=== PATIENT | male | born 1975 | race Caucasian/White ===

== ENCOUNTER 2022-05-14 21:11 | Outpatient (REF) | payer OTHER, SELFPAY ==
[2022-05-16 12:14] LABS: COVID-19 RT-PCR UVMMC Result Negative (Negative)
== END 2022-05-14 21:12 | disposition home or self-care (01) ==
LOC: LBN 21:11
PROVIDERS: Visit Provider Physician Assistant Medical
DX: J02.9 Acute pharyngitis, unspecified (principal); Z20.822 Contact with and (suspected) exposure to COVID-19
CPT/HCPCS: U0003; 87070

== ENCOUNTER 2022-06-25 21:38 | Emergency (ER) | payer OTHER, SELFPAY ==
[2022-06-25] VITALS (18 sets, daily range): BP systolic 113–137; BP diastolic 54–106; PULSE 73–94; RESP 12–22; TEMP 36.2; O2SAT 93–98
--- NOTE | 2022-06-25 21:45 | RT.EKG_ITS ---
APPROVED REPORT Exam: Resting ECG Reason for Exam: blacked out Patient Location: E HR:77 bpm ECG Measurements Heart Rate 77 AXIS VA 170 P 1 QRSd 91 QRS 68 QT 345 T 39 QTc 392 Conclusion Sinus rhythm...normal P axis, V-rate 60- 99 Consider anteroseptal infarct...Q >30mS, dimin R, V1-V2 Physician: no stemi
--- NOTE | 2022-06-25 22:06 | ED.GENADUL_ITS ---
Discharge Plan Disposition Patient Disposition: Home Discharge Details Clinical Impression: Reactive airway disease Primary Care Provider: None,None ED Provider: Alex Cartwright Home Meds and New Rx's Prescriptions: New benzonatate 100 mg capsule 100 mg PO TID Qty: 30 0RF prednisone 50 mg tablet 50 mg PO DAILY Qty: 5 0RF famotidine 40 mg tablet 40 mg PO DAILY Qty: 30 0RF Discharge Instructions Instructions: Reactive Airways Disease (ED) Additional Instructions: At this time your work-up thankfully shows no evidence of tumor, mass, pneumonia, or other infection. There is evidence of reactive airway disease/asthma which is likely secondary to your chronic tobacco use. Please do your best to cut down on smoking. Please take the Symbicort inhaler that we have given you. Take 2 puffs every 12 hours for the next 2 weeks. Additionally we have prescribed a steroid, as well as an anticough pill, these have been sent to your pharmacy on file. Please take these as directed. Additionally sometimes reflux/acid reflux can cause symptoms like this. We have sent a prescription for an antiacid famotidine. Please take this as directed. If you notice any worsening of your symptoms, or any new symptoms such as vomiting, diarrhea, fever, chills, shortness of breath, chest pain, numbness, weakness, or fainting , please return immediately to the emergency department for reevaluation. Please follow up with your primary care provider as soon as possible for reassessment and reevaluation. As always, it was a pleasure participating in your medical care today. Medical Decision Making 46-year-old male with past medical history of regular tobacco abuse, no other significant past medical history presents today for evaluation of cough. Patient states that about 3 months ago he developed a cough which lasted for about a month, he went to the urgent care and was started on amoxicillin, and an inhaler. This improved his symptoms. He then went for a trip to [place], felt great down there, and then about 3 days after he returned on their drive back he noticed a return again of his cough and mild shortness of breath. He denies any chest pain. He has now been coughing again for the last month, and it is unremitting. He is not on any antibiotics. This evening he did have a coughing fit that was so hard that he syncopized which is the first time that has happened. No personal or family history of sudden otherwise. No personal history of cardiac disease or blood clots. Patient denies any chest pain currently. He did fall and landed on his face when he syncopized, and did get a bruise lip from his tooth, but no lacerations. He denies any headache or significant facial pain or tenderness otherwise. He states he otherwise feels fine right now aside for his prolonged cough. No other complaints at this time. No other modifying factors. Physical exam demonstrates well-appearing male, EKG benign. No signs of significant facial trauma. No neurologic deficits. No hemotympanums. No head pain or headache. Symptoms appear inconsistent with an acute intercranial pathology. Lungs are clear aside from mild wheeze. I am a bit concerned with the longevity of his symptoms. Differential includes bronchitis, tumor or mass, or potential PE. Less likely cardiac etiology. We will evaluate for these, monitor closely and reassess. 1:33 AM Laboratory work-up was unremarkable. No significant white count bandemia or left shift. D-dimer was negative, electrolytes normal, troponin and EKG were stable. No concerning cause of his syncope at this time aside for his cough. Chest x-ray showed evidence of possible pulmonary nodules but no evidence of consolidation. CT scan was recommended by radiology for further assessment. CT scan Noncon per recommendations was ordered and shows some mild adenopathy, however no evidence of mass, consolidation, inflammatory changes or other abnormality. There is some heterogenous attenuation of the pulmonary parenchyma, which is consistent with mild air trapping but no other significant abnormalities. Patient otherwise remained stable. I do not feel that antibiotics would be appropriate at this time with no evidence of infection. I suspect this is more of a reactive component. We will start the patient on Symbicort and a round of steroids as well. We will give Tessalon Perles for home use. Recommend close follow-up with PCP for reassessment. If the patient has no significant improvement over the next 1 to 2 weeks of treatment that he may require pulmonology follow-up. Otherwise patient appears notably stable for discharge. Discussed red flags for which to return. I have extensively reviewed the treatment plan and discharge instructions with the patient and their family. I have addressed all patient concerns at this time. The patient and family was made aware of what symptoms to monitor for that would warrant a return to the emergency department. Discussed the plan with the patient and family, they demonstrate verbal understanding and agreement with our assessment and plan at this time. The documentation in this chart was dictated using [employer] dictation software. Please excuse any dictation errors. We will also add an antacid medication in case there is a potential component of reflux that is causing his symptoms. FINDINGS: Lungs: Focal nodularity in bilateral lower lungs on the frontal image, not clearly seen on the lateral image. Pleural spaces: Unremarkable. No pleural effusion. No pneumothorax. Heart/Mediastinum: Unremarkable. No cardiomegaly. Bones/joints: Unremarkable. IMPRESSION: Possible pulmonary nodules. Recommend noncontrast CT of the chest for further evaluation. Thank you for allowing us to participate in the care of your patient. Dictated and Authenticated by: Saqib Nixon MD 06/26/2022 12:41 AM Eastern Time ([place] & [place]) FINDINGS: Lungs: There is mild heterogeneous attenuation of the pulmonary parenchyma, consistent with mild air trapping from underlying small airways disease. Mild centrilobular emphysematous changes are present. No evidence of pulmonary nodules. There is no evidence of focal pulmonary consolidation. No evidence of pulmonary parenchymal inflammatory changes. There is no evidence of pulmonary masses. Pleural spaces: There is no evidence of pneumothorax. There are no pleural effusions present. Heart: The cardiac structures are normal. Lymph nodes: Mild adenopathy present at the level of the aortopulmonary window, peribronchial regions, subcarinal region and pretracheal region. Vasculature: The pulmonary arteries are normal in caliber. The aorta and great vessels appear normal. Bones/joints: The spine, sternum, ribs, and pectoral girdles show no evidence of acute abnormality Soft tissues: There are no soft tissue masses or fluid collections. The upper abdominal viscera are unremarkable. Other findings: The mediastinal structures are normal. IMPRESSION: 1. No evidence of pulmonary nodules. 2. There is no evidence of focal pulmonary consolidation. No evidence of pulmonary parenchymal inflammatory changes. There is no evidence of pulmonary masses. 3. Mild adenopathy present at the level of the aortopulmonary window, peribronchial regions, subcarinal region and pretracheal region. 4. There is mild heterogeneous attenuation of the pulmonary parenchyma, consistent with mild air trapping from underlying small airways disease. Mild centrilobular emphysematous changes are present. Thank you for allowing us to participate in the care of your patient. Dictated and Authenticated by: Pramod Curiel MD 06/26/2022 1:24 AM Eastern Time ([place] & [place]) HPI General Date/Time Provider Initiated Documentation: 06/25/22 21:47 . HPI Narrative: 46-year-old male with past medical history of regular tobacco abuse, no other significant past medical history presents today for evaluation of cough. Patient states that about 3 months ago he developed a cough which lasted for about a month, he went to the urgent care and was started on amoxicillin, and an inhaler. This improved his symptoms. He then went for a trip to [place] , felt great down there, and then about 3 days after he returned on their drive back he noticed a return again of his cough and mild shortness of breath. He denies any chest pain. He has now been coughing again for the last month, and it is unremitting. He is not on any antibiotics. This evening he did have a coughing fit that was so hard that he syncopized which is the first time that has happened. No personal or family history of sudden otherwise. No personal history of cardiac disease or blood clots. Patient denies any chest pain currently. He did fall and landed on his face when he syncopized, and did get a bruise lip from his tooth, but no lacerations. He denies any headache or significant facial pain or tenderness otherwise. He states he otherwise feels fine right now aside for his prolonged cough. No other complaints at this time. No other modifying factors. Related Data Home Medications Medication Instructions Recorded Confirmed benzonatate 100 mg capsule 100 mg PO TID #30 caps 06/26/22 famotidine 40 mg tablet 40 mg PO DAILY #30 tabs 06/26/22 prednisone 50 mg tablet 50 mg PO DAILY #5 tabs 06/26/22 Previous Rx's Medication Instructions Recorded benzonatate 100 mg capsule 100 mg PO TID #30 caps 06/26/22 famotidine 40 mg tablet 40 mg PO DAILY #30 tabs 06/26/22 prednisone 50 mg tablet 50 mg PO DAILY #5 tabs 06/26/22 Allergies Allergy/AdvReac Type Severity Reaction Status Date / Time No Known Allergies Allergy Unverified 06/25/22 21:49 General Stated Complaint: RespSymp SUHAIL: 3 Review of Systems All systems reviewed & are unremarkable except as noted in HPI and below PFSH All Active Problems (Updated 06/26/22 @ 01:36 by Alex Cartwright DO) Reactive airway disease (Acute) Social History Smoking/Tobacco Use Status: Current every day Tobacco Type: cigarettes Smoking risk assessment performed?: Yes Drug use: Never Substance use type: does not use Do you feel safe in your relationship?: Yes Exam Narrative Exam Narrative: 1.Const: Well-nourished, Well-developed, appearing stated age 2.Eyes: PERRL, no conjunctival injection, and symmetrical lids. 3.ENT: Atraumatic external nose and ears. Moist MM. Neck: Symmetric, trachea midline, No thyromegaly. There is no evidence of raccoon eyes, alvarez sign, CSF rhinorrhea, mastoid tenderness, cranial crepitus, hemotympanum, exophthalmos, or hyphema. Patient demonstrates intact dentition with no signs of tooth avulsion or fracture, no signs of jaw deformity, no evidence of a LeFort's fracture, with an intact palate, nose and orbital region. There is no evidence of a nasal septal hematoma. No proptosis. Jaw closes symmetrically. Airway is clear. 4.CVS: +S1/S2, No murmurs or gallops. Peripheral pulses 2+ and equal in all extremities. Brisk capillary refill in all extremities. 5.RESP: Unlabored respiratory effort. Clear to auscultation bilaterally. Except there is a very minimal wheeze noted in the right lower lung field. 6.GI: Soft, Nontender/Nondistended, No hepatosplenomegaly. No guarding or rebound. 7.MSK: Normocephalic/Atraumatic, Extremities w/o deformity or ttp No cyanosis or clubbing, Normal movement of all extremities 8.Skin: Warm, Dry. No rashes or lesions. 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 Sensation grossly intact, no focal neurologic deficits. All 6 cardinal planes of vision are fully intact. No evidence of rotatory or vertical nystagmus. The patient demonstrated a normal [id number]-[id number], good dexterity. There was no evidence of dysdiadochokinesia. Patient was able to ambulate without difficulty. There was no wide-based gait. Romberg testing was normal. Yypm-ru-[id number] testing was normal. Sensation was intact bilaterally as well as muscle strength bilaterally for all extremities. Patient was able to verbalize butter cup with no slurring, or miss pronunciation. 10.Psych: (AAO) x3. Appropriate mood and affect Course Vital Signs Vital signs: Vital Signs Temperature 36.2 C L 06/25/22 21:43 Pulse 94 H 06/25/22 21:43 Respiratory Rate 16 06/25/22 21:43 Blood Pressure 137/106 H 06/25/22 21:43 Pulse Oximetry 98 06/25/22 21:43 Temperature 36.2 C L 06/25/22 21:43 Temperature Source Tympanic 06/25/22 21:43 Pulse 94 H 06/25/22 21:43 Respiratory Rate 16 06/25/22 21:43 Respiratory Effort Normal 06/25/22 21:43 Blood Pressure 137/106 H 06/25/22 21:43 Blood Pressure Position Sitting 06/25/22 21:43 Pulse Oximetry 98 06/25/22 21:43 Oxygen Delivery Method Room Air 06/25/22 21:43 Oxygen Flow Rate 0 06/25/22 21:43 Pain Level 3 06/25/22 21:43
[2022-06-25 22:16] LABS: Abs Immature Grans 0.06 10^3/uL (0.0-0.06); Absolute Eosinophil Count 0.32 10^3/uL (0.0-0.7); Absolute Lymphocyte Count 2.79 10^3/uL (1.2-3.4); Absolute Monocyte Count 1.16 10^3/uL (0.1-0.8); Basophils % 0.5; Eosinophils % 2.9; HCT 46.1 % (40.0-50.0); HGB 15.8 g/dL (13.5-17.5); Immature Grans % 0.5; Lymphocytes % 25.5; MCH 28.7 pg (27.0-33.0); MCHC 34.3 % (32.0-36.0); MCV 84 fL (80-95); MPV 9.8 fL (8.0-11.0); Monocytes % 10.6; Platelet Count 272 10^3/uL (130-400); RDW 13.7 % (11.8-14.1); RDW-SD 42.2 fL; WBC 10.94 10^3/uL (4.4-10.8)
[2022-06-25] MEDS: Benzonatate 100 MG CAP PO (22:16)
[2022-06-25 22:21] LABS: Absolute Basophil Count 0.05 10^3/uL (0.0-0.2); Absolute Neutrophil Count 6.56 10^3/uL (1.2-6.7)
[2022-06-25 22:32] LABS: ALT 35 U/L (16-63); AST 17 U/L (15-37); Albumin 3.8 g/dL (3.4-5.0); Alkaline Phosphatase 57 U/L (46-116); Anion Gap 9.5 mmol/L (3-11); BUN 16 mg/dL (7-18); Bilirubin, Total 0.6 mg/dL (0.2-1.0); CO2 26.5 mmol/L (21.0-32.0); CREATININE 1.1 mg/dL (0.70-1.30); Chloride 106 mmol/L (98-107); Estimated GFR 84.89 (mL/min/1.73m2); Glucose 93 mg/dL (74-106); Potassium 3.8 mmol/L (3.5-5.1); Sodium 142 mmol/L (136-145); Total Protein 7.8 g/dL (6.4-8.2); Troponin I < 50 ng/L (<or=60)
--- NOTE | 2022-06-25 23:30 | DI.RAD_ITS ---
Exam(s) XR CHEST 2V PA LATERAL EXAM: XR CHEST 2V PA LATERAL CLINICAL HISTORY: cough, r/o pneumonia TECHNIQUE: 2D digital imaging was performed of the chest. Two images were obtained. PA and lateral views were obtained. COMPARISON: CT CT CHEST WO from 06/26/2022 FINDINGS: MEDIASTINUM: Normal. HEART: Normal. PULMONARY VASCULATURE: Normal. LUNGS: No focal consolidating infiltrate is seen. PLEURAL SPACE: No pleural effusion or pneumothorax. BONE:Within normal limits for the patient's age. OTHER FINDINGS:Nipple shadows are seen bilaterally. IMPRESSION: No acute pulmonary findings. DATA REPOSITORY: RADIATION DOSE DELIVERED:
[2022-06-25 23:32] LABS: D-Dimer 326 ng/mlFEU (<500)
[2022-06-26] VITALS (13 sets, daily range): BP systolic 124; BP diastolic 69; PULSE 65–89; RESP 13–24; TEMP 36.2; O2SAT 93–99
--- NOTE | 2022-06-26 00:42 | DI.VRAD_ITS ---
PROCEDURE INFORMATION: Exam: XR Chest Exam date and time: 06/25/2022 11:50 PM Age: 46 years old Clinical indication: Cough; Additional info: Cough, R/O pneumonia TECHNIQUE: Imaging protocol: Radiologic exam of the chest. Views: 2 views. COMPARISON: No relevant prior studies available. FINDINGS: Lungs: Focal nodularity in bilateral lower lungs on the frontal image, not clearly seen on the lateral image. Pleural spaces: Unremarkable. No pleural effusion. No pneumothorax. Heart/Mediastinum: Unremarkable. No cardiomegaly. Bones/joints: Unremarkable. IMPRESSION: Possible pulmonary nodules. Recommend noncontrast CT of the chest for further evaluation. Dictated and Authenticated by: Saqib Nixon MD. Ordering:LIGIA Johnson MD
--- NOTE | 2022-06-26 00:45 | DI.CT_ITS ---
Exam(s) CT CHEST WO EXAM: CT CHEST WO CLINICAL HISTORY: pulmonary nodules, rad requested further eval. TECHNIQUE: Imaging protocol: Axial computed tomography images were obtained and coronal and sagittal reformatted images were created and reviewed. COMPARISON: CR,XR XR CHEST 2V PA LATERAL from 06/25/2022 FINDINGS: Tracheobronchial tree: Patent where visualized. Pulmonary parenchyma: No consolidation or dominant measurable mass. No architectural distortion. Ther e is a calcified granuloma in the right middle lobe. No noncalcified pulmonary nodules. Mild emphys ematous changes are present. Mediastinum and Bridgette: There are few mildly enlarged lymph nodes in the mediastinum. The largest is i n the right paratracheal region and measures 1.7 x 1.2 cm. The esophagus is unremarkable. Thyroid gland: Unremarkable. Pleura: No effusion or pneumothorax. Heart: The heart is not dilated. No coronary artery calcifications are seen. No pericardial effusion. Aorta: Thoracic aorta non-dilated. Upper abdomen: There is decreased attenuation of the liver consistent with fatty infiltration. Lymph nodes: Within normal limits. Soft tissues: Mild gynecomastia. Bones:Within normal limits for the patient's age. IMPRESSION: 1. No noncalcified pulmonary nodules. 2. Calcified granuloma in the right middle lobe. 3. Nonspecific mildly enlarged lymph nodes in the mediastinum. 4. Mild emphysematous changes are present. 5. No focal consolidation. RADIATION DOSE DELIVERED: 768.48mGy.cm Total DLP 768.48mGy.cm Total DLP DATA REPOSITORY: All CT scans at this facility are submitted to the National Radiology Data Registry (NRDR) Dose Index Registry (DIR) with the [employer] ([employer]). RADIATION OPTIMIZATION: All CT scans at this facility use at least one of these dose optimization te chniques: automated exposure control; mA and/or kV adjustment per patient size (includes targeted exa ms where dose is matched to clinical indication); or iterative reconstruction.
--- NOTE | 2022-06-26 01:24 | DI.VRAD_ITS ---
PROCEDURE INFORMATION: Exam: CT Chest Without Contrast; Diagnostic Exam date and time: 06/26/2022 1:01 AM Age: 46 years old Clinical indication: Abnormal findings; Other: Pulmonary nodules, rad requested further eval TECHNIQUE: Imaging protocol: Diagnostic computed tomography of the chest without contrast. 3D rendering (Not supervised by radiologist): MIP and/or 3D reconstructed images were created by the technologist. Radiation optimization: All CT scans at this facility use at least one of these dose optimization techniques: automated exposure control; mA and/or kV adjustment per patient size (includes targeted exams where dose is matched to clinical indication); or iterative reconstruction. COMPARISON: CR XR CHEST 2V PA LATERAL 06/25/2022 11:50 PM FINDINGS: Lungs: There is mild heterogeneous attenuation of the pulmonary parenchyma, consistent with mild air trapping from underlying small airways disease. Mild centrilobular emphysematous changes are present. No evidence of pulmonary nodules. There is no evidence of focal pulmonary consolidation. No evidence of pulmonary parenchymal inflammatory changes. There is no evidence of pulmonary masses. Pleural spaces: There is no evidence of pneumothorax. There are no pleural effusions present. Heart: The cardiac structures are normal. Lymph nodes: Mild adenopathy present at the level of the aortopulmonary window, peribronchial regions, subcarinal region and pretracheal region. Vasculature: The pulmonary arteries are normal in caliber. The aorta and great vessels appear normal. Bones/joints: The spine, sternum, ribs, and pectoral girdles show no evidence of acute abnormality. Soft tissues: There are no soft tissue masses or fluid collections. The upper abdominal viscera are unremarkable. Other findings: The mediastinal structures are normal. IMPRESSION: 1. No evidence of pulmonary nodules. 2. There is no evidence of focal pulmonary consolidation. No evidence of pulmonary parenchymal inflammatory changes. There is no evidence of pulmonary masses. 3. Mild adenopathy present at the level of the aortopulmonary window, peribronchial regions, subcarinal region and pretracheal region. 4. There is mild heterogeneous attenuation of the pulmonary parenchyma, consistent with mild air trapping from underlying small airways disease. Mild centrilobular emphysematous changes are present. Dictated and Authenticated by: Pramod Curiel MD. Ordering:LIGIA Johnson MD
[2022-06-26] MEDS: Budesonide/Formoterol 160/4.5 6 GM 60 PUFF INH IH (01:55)
--- NOTE | 2022-06-26 02:06 | NUR.NOTE ---
pt refused spacer, has a new spacer at home.Nursing Note:
== END 2022-06-26 02:02 | disposition home or self-care (01) ==
PROVIDERS: Emergency Provider Student in an Organized Health Care Education/Training Program
DX: J45.909 Unspecified asthma, uncomplicated (principal); F17.210 Nicotine dependence, cigarettes, uncomplicated
CPT/HCPCS: 36415; 71250; 80053; 93005; 94640; 99284; 71046; 84484; 85025; 85379; 93010; 99285